=== PATIENT | female | born 2000 | race Caucasian/White ===

== ENCOUNTER 2019-03-06 07:01 | Inpatient (IN) | payer MEDICAID ==
[~2019-03-06] VITALS: Ht 157.5 cm; Wt 48.1 kg
[2019-03-06 07:33] LABS: Urine Bacteria NONE SEEN /hpf (None Seen); Urine Blood TRACE /uL (Negative); Urine Mucus FEW (None Seen); Urine Specific Gravity 1.029 (1.001-1.035); Urine WBC 1 /hpf (0 - 5)
[2019-03-06 07:48] LABS: Basophils # (auto) 0.1 uL; Basophils % (auto) 0.3 % (0.0-2.0); Eosinophils # (auto) 0 uL; Hematocrit 38.1 % (36.0-46.0); Hemoglobin 12.8 g/dL (12.2-16.2); Lymphocytes # (auto) 0.7 uL; Lymphocytes % (auto) 2.3 % (10.0-50.0); Mean Corpuscular Hemoglobin 28.4 pg (28.0-32.0); Mean Corpuscular Hgb Conc. 33.7 g/dL (32.0-36.0); Mean Corpuscular Volume 84.4 fL (80.0-100.0); Monocytes % (auto) 6.8 % (0.0-12.0); Neutrophils # (auto) 27.2 uL; Neutrophils % (auto) 90.6 % (37.0-80.0); Platelet Count (auto) 326 10^3/uL (140-450); Red Blood Cells 4.51 10^6/uL (4.0-5.20); Red Cell Distribution Width 12.7 % (11.8-14.3)
[2019-03-06 08:07] LABS: Calcium 8.9 mg/dL (8.5-10.1); Potassium 3.5 mmol/L (3.5-5.1)
[2019-03-06 08:10] LABS: BUN/Creatinine Ratio 14.5
[2019-03-06] MEDS ORDERED: IOHEXOL 300 MG/ML 100ML BOTTLE IJ ONE (08:19)
[2019-03-06] MEDS ORDERED: SODIUM CHLORIDE 0.9% 1,000 ML IV ONE (08:35)
[2019-03-06] MEDS ORDERED: SODIUM CHLORIDE 0.9% 500 ML IVB ONE (08:35)
[2019-03-06] MEDS ORDERED: cefTRIAXone 1GM/50ML D5W 50 ML IV ONE (08:45)
[2019-03-06 11:05] LABS: Platelet Count (auto) 334 10^3/uL (140-450)
[2019-03-06] MEDS ORDERED: ONDANSETRON HCL 4 MG/2 ML VIAL IV PRN ×2 (11:15→17:45)
[2019-03-06] MEDS: SOD CHL 0.9%/ KCL 20MEQ 1,000 ML IV SCH ×2 (11:33→21:34)
--- NOTE | 2019-03-06 13:15 | NUR ---
PATIENT ARRIVED ON UNIT PATIENT ALERT AND ORIENTED X4, ORIENTED PATIENT TO STAFF, UNIT, CALL LIGHT, VISITING HOUR. POC DISCUSSED PATIENT VERBALIZED UNDERSTANDING. PATIENT DENIES SOB, OR DISTRESS BUT COMPLAINS OF ABDOMINAL PAIN. BED IN LOWEST LOCKED POSITION CALL LIGHT WITHIN REACH WILL CONTINUE TO MONITOR
[2019-03-06] MEDS: metroNIDAZOLE 500MG/100ML 100 ML IV SCH ×2 (14:13→22:05)
[2019-03-06 14:15] VITALS: BP 109/51
[2019-03-06] MEDS ORDERED: ACETAMINOPHEN IV 100 ML IV ONE (15:18)
[2019-03-06] MEDS ORDERED: ACETAMINOPHEN IV 1000 MG/100ML (10MG/ML) IV ONE (15:30)
[2019-03-06 17:00] VITALS: BP 100/57
[2019-03-06] MEDS ORDERED: BUPIVACAINE 0.25% INJ 50ML VIAL ONE (17:04)
[2019-03-06] MEDS ORDERED: SUCCINYLCHOLINE CHLORIDE 20 MG/ML 10ML VIAL IV ONE (17:17)
[2019-03-06] MEDS ORDERED: MIDAZOLAM HCL 1MG/1ML-2 ML VIAL ONE (17:27)
[2019-03-06] MEDS ORDERED: METOCLOPRAMIDE HCL 5MG/ml INJ 2ml VIAL ONE (17:28)
[2019-03-06] MEDS ORDERED: PROPOFOL 10 MG/ML 20 ML IV ONE (17:29)
[2019-03-06] MEDS ORDERED: ROCURONIUM 10MG/ML 10ML VIAL IV ONE (17:29)
[2019-03-06] MEDS ORDERED: LIDOCAINE 2% (LOCAL ANESTH.) PF 5ml SDV ONE (17:29)
[2019-03-06] MEDS ORDERED: NALOXONE HCL 0.4 MG/ML VIAL IV PRN (17:45)
[2019-03-06] MEDS ORDERED: HYDROmorphone HCL 2 MG/ML VL IV PRN ×2 (17:45)
[2019-03-06] MEDS ORDERED: fentaNYL CITRATE 100 MCG/2 ML VL ONE (17:58)
[2019-03-06] MEDS ORDERED: GLYCOPYRROLATE 0.2 MG/ML 1ML VIAL ONE (17:59)
[2019-03-06] MEDS ORDERED: NEOSTIGMINE 1 MG/ML INJ (10mg/10ML VIAL) ONE (17:59)
[2019-03-06] MEDS ORDERED: KETOROLAC TROMETH 30 MG/ML 1ML VIAL ONE (18:00)
--- NOTE | 2019-03-06 19:03 | NUR ---
end of shift note patient off unit at this time. patient at OR. endorse care to noc rn
--- NOTE | 2019-03-06 19:10 | NUR ---
Opening Shift Note Received report from Josiane AUGUSTINE. Patient at OR at this time.
--- NOTE | 2019-03-06 19:45 | NUR ---
Received patient from OR, s/p Laparoscopic Appendectomy. Patient awake and alert, in moderate pain at post op site. Medial abdominal incision c/d/i. Instructed on POC, will continue to monitor Q1HR or PRN.
[2019-03-06] MEDS: MORPHINE SULF INJ 2 MG/ML SYRINGE 1ML IV PRN (19:57)
[2019-03-06 21:00] VITALS: BP 101/42
[2019-03-06] MEDS: FAMOTIDINE (10MG/ML) 2ML VL IV SCH (22:05)
[2019-03-07 04:30] VITALS: BP 94/41
[2019-03-07] MEDS: metroNIDAZOLE 500MG/100ML 100 ML IV SCH ×3 (05:55→21:37)
[2019-03-07 06:31] LABS: Basophils # (auto) 0.1 uL; Basophils % (auto) 0.6 % (0.0-2.0); Eosinophils # (auto) 0 uL; Eosinophils % (auto) 0.2 % (0.0-7.0); Hematocrit 30.2 % (36.0-46.0); Hemoglobin 10.4 g/dL (12.2-16.2); Lymphocytes # (auto) 1.9 uL; Lymphocytes % (auto) 16.2 % (10.0-50.0); Mean Corpuscular Hemoglobin 29.3 pg (28.0-32.0); Mean Corpuscular Hgb Conc. 34.4 g/dL (32.0-36.0); Mean Corpuscular Volume 85.2 fL (80.0-100.0); Monocytes # (auto) 0.9 uL; Monocytes % (auto) 7.9 % (0.0-12.0); Neutrophils # (auto) 8.9 uL; Neutrophils % (auto) 75.1 % (37.0-80.0); Nucleated Red Blood Cells % 0.1 %; Platelet Count (auto) 234 10^3/uL (140-450); Red Blood Cells 3.55 10^6/uL (4.0-5.20); Red Cell Distribution Width 12.7 % (11.8-14.3); White Blood Cell 11.9 10^3/uL (4.4-10.8)
[2019-03-07 06:32] LABS: Potassium 4.1 mmol/L (3.5-5.1)
[2019-03-07 06:40] LABS: Albumin 3.4 g/dL (3.4-5.0); BUN/Creatinine Ratio 28.3; Bilirubin, Total 0.6 mg/dL (0.2-1.0); Calcium 8.2 mg/dL (8.5-10.1); Total Protein 6.3 g/dL (6.4-8.2)
--- NOTE | 2019-03-07 07:10 | NUR ---
Patient stable at this time, no complaints of pain. Endorsed care to Madisyn AUGUSTINE.
[2019-03-07] MEDS: SOD CHL 0.9%/ KCL 20MEQ 1,000 ML IV SCH ×2 (07:59→16:46)
--- NOTE | 2019-03-07 08:00 | NUR ---
Opening Shift Note Assumed care of patient, awake and alert. Family at bedside. No S/S of distress/SOB. Some abdominal pain reported. Glue dressings to abdomen. No drainage noted. Instructed on POC and to call for assist PRN, will continue to monitor for changes Q1hr and PRN.
[2019-03-07 09:00] VITALS: BP 111/55
[2019-03-07] MEDS: MORPHINE SULF INJ 2 MG/ML SYRINGE 1ML IV PRN (09:17)
[2019-03-07] MEDS: LEVOFLOXACIN 500MG 100 ML IV SCH (10:41)
[2019-03-07] MEDS: FAMOTIDINE (10MG/ML) 2ML VL IV SCH ×2 (10:41→21:37)
[2019-03-07 13:00] VITALS: BP 109/49
--- NOTE | 2019-03-07 15:36 | NUR ---
REQUEST FOR PAIN MED PATIENT RECEIVED MORPHINE TODAY AND STATED IT DIDN'T HELP MUCH AND MADE HER NAUCEOUS. ZOFRAN WAS GIVEN, WHICH HELPED WITH THE NAUSEA. PATIENT IS AGAIN REQUESTING SOMETHING FOR PAIN BUT DOES NOT WANT THE MORPHINE. THERE IS NOTHING ELSE ORDERED PRN FOR PAIN. THIS NURSE LEFT A MESSAGE FOR DR. SNIDER TO REQUEST A DIFFERENT PAIN MEDICATION. WAITING TO HEAR BACK.
[2019-03-07 17:00] VITALS: BP 111/67
--- NOTE | 2019-03-07 17:40 | NUR ---
DR. APODACA/JANIE APODACA WAS AT BEDSIDE. HE SAID THE PATIENT IS CLEARED TO BE DISCHARGED TODAY. ORDERED A SOFT DIET, TYLENOL 325 MG PO EVERY 6 HOURS NEEDED. HE SAID SHE DID NOT NEED TO BE SENT HOME WITH ANTIBIOTICS AND IS TO FOLLOW UP WITH HIM IN 2 WEEKS. SHE CAN SHOWER AFTER 48 HOURS. SHE IS TO BE OFF WORK FOR 7 DAYS AND NEEDS A WORK EXCUSE FOR THAT TIME.
[2019-03-07] MEDS ORDERED: ACETAMINOPHEN 325 MG TAB PO PRN (18:15)
--- NOTE | 2019-03-07 18:18 | NUR ---
/JANIE LEFT MESSAGE FOR DR. SNIDER REGARDING DR. APODACA'S CLEARANCE OF PATIENT TO BE DISCHARGED TODAY. HAVE NOT HEARD BACK AT THIS TIME.
--- NOTE | 2019-03-07 19:20 | NUR ---
Opening Shift Note Received report from Madisyn AUGUSTINE. Assumed care of patient, awake and alert, mother at bedside. No S/S of distress/SOB or pain. Instructed on POC and to call for assist PRN, will continue to monitor for changes Q1hr and PRN.
[2019-03-07 22:00] VITALS: BP 114/55
[2019-03-08] MEDS: SOD CHL 0.9%/ KCL 20MEQ 1,000 ML IV SCH (03:20)
[2019-03-08 04:54] VITALS: BP 97/56
[2019-03-08] MEDS: metroNIDAZOLE 500MG/100ML 100 ML IV SCH (06:09)
--- NOTE | 2019-03-08 07:18 | NUR ---
Patient stable, no complaints of pain. Care endorsed to Allison AUGUSTINE.
[2019-03-08 08:44] VITALS: BP 112/59
[2019-03-08] MEDS: FAMOTIDINE (10MG/ML) 2ML VL IV SCH (09:30)
[2019-03-08] MEDS: LEVOFLOXACIN 500MG 100 ML IV SCH (09:30)
[2019-03-08 12:08] VITALS: BP 112/59
== END 2019-03-08 14:22 | disposition home or self-care (01) | DRG 710 ==
LOC: ER 07:06 → OVERFLOW 07:07 → EAST 15:12
PROVIDERS: ADMIT Nurse Practitioner Acute Care; ATTEND Internal Medicine
PROC: 0W9J4ZZ Drainage of Pelvic Cavity, Percutaneous Endoscopic Approach (ICD-10-PCS; 2019-03-06)
PROC: 0DTJ4ZZ Resection of Appendix, Percutaneous Endoscopic Approach (ICD-10-PCS; principal; 2019-03-06 17:23)
DX: A41.9 Sepsis, unspecified organism (principal); K35.33 Acute appendicitis with perforation, localized peritonitis, and gangrene, with abscess; R73.9 Hyperglycemia, unspecified; F17.210 Nicotine dependence, cigarettes, uncomplicated; R01.1 Cardiac murmur, unspecified; F12.90 Cannabis use, unspecified, uncomplicated; N73.9 Female pelvic inflammatory disease, unspecified
CPT/HCPCS: 36415; 74177; 80053; 81001; 81025; 82150; 83036; 83605; 83690; 85025; 85610; 85730; 86850; 86900; 86901; 87040; G0378; J0131; J0330; J0696; J1885; J1956; J2001; J2250; J2405; J2704; J3490

== ENCOUNTER 2020-11-03 20:42 | Emergency (ER) | payer MEDICAID ==
[~2020-11-03] VITALS: Ht 157.5 cm; Wt 45.8 kg
[2020-11-03] MEDS ORDERED: SODIUM CHLORIDE 0.9% 1,000 ML IVB ONE (21:30)
[2020-11-03 22:03] LABS: Urine Amorphous Crystal FEW /hpf (None Seen); Urine Bacteria NONE SEEN /hpf (None Seen); Urine Blood 2+ /uL (Negative); Urine Specific Gravity 1.018 (1.001-1.035); Urine WBC 4 /hpf (0 - 5); Urine WBC Clumps PRESENT /hpf (None Seen)
[2020-11-03 22:09] LABS: Basophils # (auto) 0.1 10 ^3/uL (0-0.2); Basophils % (auto) 0.8 % (0.0-2.0); Eosinophils # (auto) 0 10 ^3/uL (0-0.8); Eosinophils % (auto) 0.4 % (0.0-7.0); Hematocrit 34.2 % (36.0-46.0); Hemoglobin 11.7 g/dL (12.2-16.2); Lymphocytes # (auto) 2.2 10 ^3/uL (0.4-5.4); Lymphocytes % (auto) 31.1 % (10.0-50.0); Mean Corpuscular Hemoglobin 29.9 pg (28.0-32.0); Mean Corpuscular Hgb Conc. 34.3 g/dL (32.0-36.0); Mean Corpuscular Volume 87.3 fL (80.0-100.0); Monocytes # (auto) 0.4 10 ^3/uL (0-1.3); Monocytes % (auto) 5.2 % (0.0-12.0); Neutrophils # (auto) 4.4 10 ^3/uL (1.6-8.6); Neutrophils % (auto) 62.5 % (37.0-80.0); Nucleated Red Blood Cells % 0.2 %; Platelet Count (auto) 314 10^3/uL (140-450); Red Blood Cells 3.91 10^6/uL (4.0-5.20); Red Cell Distribution Width 13.5 % (11.8-14.3)
[2020-11-03 22:29] LABS: Albumin 4.6 g/dL (3.4-5.0); Calcium 9.4 mg/dL (8.5-10.1); Potassium 3.9 mmol/L (3.5-5.1)
[2020-11-03 22:30] LABS: BUN/Creatinine Ratio 15.7; Bilirubin, Total 0.3 mg/dL (0.2-1.0); Total Protein 7.6 g/dL (6.4-8.2)
[2020-11-03 23:03] LABS: INR 1.06 (0.9-1.15); Partial Thromboplastin Time 23.7 sec (23.0-31.2)
[2020-11-04 01:41] VITALS: BP 111/65
== END 2020-11-04 01:42 | disposition home or self-care (01) ==
LOC: ER 20:42
DX: N93.8 Other specified abnormal uterine and vaginal bleeding (principal); F12.10 Cannabis abuse, uncomplicated
CPT/HCPCS: 36415; 76830; 76856; 80053; 81001; 83735; 84702; 85025; 85610; 85730; 96360; 99285; J7030

== ENCOUNTER 2023-08-23 11:31 | Emergency (ER) | payer MEDICAID ==
[~2023-08-23] VITALS: Ht 157.5 cm; Wt 46.9 kg
[2023-08-23 12:04] LABS: Basophils # (auto) 0.1 10 ^3/uL (0-0.2); Basophils % (auto) 1.3 % (0.0-2.0); Eosinophils # (auto) 0.2 10 ^3/uL (0-0.8); Hematocrit 38.8 % (36.0-46.0); Hemoglobin 13.1 g/dL (12.2-16.2); Lymphocytes # (auto) 4.9 10 ^3/uL (0.4-5.4); Lymphocytes % (auto) 50.7 % (10.0-50.0); Mean Corpuscular Hemoglobin 29.6 pg (28.0-32.0); Mean Corpuscular Hgb Conc. 33.8 g/dL (32.0-36.0); Mean Corpuscular Volume 87.6 fL (80.0-100.0); Monocytes # (auto) 0.9 10 ^3/uL (0-1.3); Monocytes % (auto) 8.9 % (0.0-12.0); Neutrophils # (auto) 3.6 10 ^3/uL (1.6-8.6); Neutrophils % (auto) 37.1 % (37.0-80.0); Nucleated Red Blood Cells % 0.1 %; Red Blood Cells 4.44 10^6/uL (4.0-5.20); Red Cell Distribution Width 13.7 % (11.8-14.3); White Blood Cell 9.7 10^3/uL (4.4-10.8)
[2023-08-23 12:22] VITALS: BP 92/52; RESP 23; O2SAT 97
[2023-08-23 12:27] LABS: Alanine Aminotransferase 15 U/L (7-40); Albumin 5.4 g/dL (3.2-4.8); Alkaline Phosphatase 52 U/L (46-116); Anion Gap 14 (5-15); Aspartate Aminotransferase 15 U/L (13-40); BUN/Creatinine Ratio 11.7 (10.0-20.0); Blood Urea Nitrogen 9 mg/dL (9-23); Calcium 10.6 mg/dL (8.5-10.1); Carbon Dioxide 20 mmol/L (20-30); Chloride 106 mmol/L (98-107); Glucose 129 mg/dL (74-106); Potassium 3.7 mmol/L (3.5-5.1); Sodium 140 mmol/L (136-145)
[2023-08-23 12:28] LABS: Bilirubin, Total 0.5 mg/dL (0.2-1.0); Total Protein 7.8 g/dL (5.7-8.2)
[2023-08-23 13:01] LABS: Urine Bacteria FEW /hpf (None Seen); Urine Blood Negative /uL (Negative); Urine Clarity Clear (Clear); Urine Color Colorless (Yellow); Urine Protein, UAD Negative (Negative); Urine Specific Gravity 1.003 (1.001-1.035); Urine Urobilinogen Normal (Negative); Urine WBC <1 /hpf (0 - 5); Urine pH 6.5 (5.0-8.0)
[2023-08-23 14:37] VITALS: PULSE 133
[2023-08-23 15:11] LABS: Amphetamine Screen, Urine Neg (NEGATIVE); Barbiturate Scree,Urine Neg (NEGATIVE); Benzodiazephine Screen, Urine Neg (NEGATIVE); Cannabinoid Screen, Urine Pos (NEGATIVE); Cocaine Screen, Urine Neg (NEGATIVE); Opiate Scree,Urine Neg (NEGATIVE); Phencyclidine Screen, Urine Neg (NEGATIVE)
[2023-08-23] MEDS ORDERED: DILT120C54 PO (16:15)
== END 2023-08-23 16:51 | disposition home or self-care (01) ==
LOC: ER 11:31
DX: I47.10 Supraventricular tachycardia, unspecified (principal); R42 Dizziness and giddiness
CPT/HCPCS: 36415; 71045; 80053; 80307; 81001; 84443; 84484; 85025; 85379; 93005

== ENCOUNTER 2025-02-03 09:02 | Outpatient (CLI) | payer MEDICAID ==
[~2025-02-03 09:02] MED LIST: DILT120C54 PO
== END 2025-02-03 17:00 | disposition home or self-care (01) ==
LOC: Rad HDHVI 09:02
PROVIDERS: ATTEND Internal Medicine Cardiovascular Disease
DX: I08.8 Other rheumatic multiple valve diseases (principal); I10 Essential (primary) hypertension
CPT/HCPCS: 93306